=== PATIENT | female | born 1985 | race Asian ===

== ENCOUNTER → 2020-09-16 12:43 | Outpatient (CLI) | payer OTHER, SELFPAY ==
[2020-09-16 13:11] LABS: Add Manual Diff / Slide Review NO; Basophils Absolute Auto 100 /uL (0-100); Basophils Percent Auto 0.9 % (0-2); Eosinophils Absolute Auto 100 /uL (0-450); Eosinophils Percent Auto 1.9 % (2-4); Hematocrit 39.5 % (36-46); Hemoglobin 13.2 g/dL (12.0-16.0); Lymphocytes Absolute Auto 1900 /uL (1100-4500); Lymphocytes Percent Auto 35.1 % (25-40); Mean Corpuscular HGB Conc 33.5 % (30-36); Mean Corpuscular Hemoglobin 29.2 PG (26-34); Mean Corpuscular Volume 87.1 fL (80-100); Monocytes Absolute Auto 400 /uL (0-900); Monocytes Percent Auto 6.9 % (3-14); Neutrophils Absolute Auto 3000 /uL (1500-7000); Neutrophils Percent Auto 55.2 % (50-75); Platelet Count 288 X10^3/uL (150-400); Red Blood Cell Count 4.54 X10^6/uL (4.0-5.2); Red Cell Distribution Width 12.8 % (11.6-14.8); White Blood Cell Count 5.4 X10^3/uL (4.5-11.0)
[2020-09-16 13:27] LABS: Alanine Aminotransferase 24 IU/L (<35); Albumin 4.5 g/dL (3.5-5.0); Albumin Globulin Ratio 1.3 (1.0-2.8); Alkaline Phosphatase 44 U/L (38-126); Aspartate Aminotransferase 27 IU/L (14-36); BUN Creatinine Ratio 21.9 (6-22); Bilirubin Total 0.5 mg/dL (0.2-1.3); Blood Urea Nitrogen 14 mg/dL (7-17); Calcium 9.1 mg/dL (8.4-10.2); Carbon Dioxide 27 mmol/L (22-32); Chloride 105 mmol/L (98-107); Cholesterol 229 mg/dL (140-199); Estimated Glomerular Filt Rate > 60.0 mL/min (>60); Globulin 3.5 g/dL (1.7-4.1); Glucose 93 mg/dL (70-100); HDL Cholesterol 55 mg/dL (40-60); HEMOLYSIS < 15 (0-50); LDL Cholesterol Calculated 163 mg/dL (<100); Sodium 138 mmol/L (137-145); Triglycerides 53 mg/dL (35-150)
[2020-09-16 13:43] LABS: Free T4, Direct Thyroxine 1.43 ng/dL (0.78-2.19)
[2020-09-16 13:58] LABS: Thyroid Stimulating Hormone 1.06 uIU/mL (0.47-4.68)
== END ==
PROVIDERS: PCP Registered Nurse; Referring Provider Registered Nurse; Visit Provider Registered Nurse
DX: F41.8 Other specified anxiety disorders (principal); E78.5 Hyperlipidemia, unspecified; E05.90 Thyrotoxicosis, unspecified without thyrotoxic crisis or storm; B00.9 Herpesviral infection, unspecified
CPT/HCPCS: 36415; 80053; 80061; 84439; 84443; 85025

== ENCOUNTER → 2020-09-21 16:10 | Outpatient (CLI) | payer OTHER, SELFPAY ==
--- NOTE | 2020-09-21 16:11 | DI.US.S_ITS ---
PROCEDURE: US THYROID INDICATIONS: graves disease TECHNIQUE: Real-time scanning was performed of the thyroid gland, with image documentation. COMPARISON: None. FINDINGS: Right: Thyroid lobe measures 5.7 x 2.4 x 2.2 cm, and is homogeneous in echotexture. Left: Thyroid lobe measures 4.9 x 1.7 x 2.0 cm, and is homogenous in echotexture. Isthmus: 1.9 mm thick. Homogeneous, symmetric mildly increased vascularity throughout both lobes. IMPRESSION: 1. Mildly diffusely increased vascular flow throughout both thyroid lobes in a symmetric fashion, consistent with Graves disease. 2. No discrete nodules. 3. Normal size and morphology without significant fibrosis or cystic change. ACR TI-RADS definitions and recommendations: TI-RADS 1 (benign): 0 points. FNA not needed. TI-RADS 2 (not suspicious): 2 points. FNA not needed. TI-RADS 3 (mildly suspicious): 3 points. * FNA if 2.5 cm or larger, follow up if 1.5 cm or larger (at 1, 3, and 5 years). TI-RADS 4 (moderately suspicious): 4-6 points. * FNA if 1.5 cm or larger, follow up if 1 cm or larger (at 1, 2, 3, and 5 years). TI-RADS 5 (highly suspicious): 7 points or more. * FNA if 1 cm or larger, follow up if 0.5 cm or larger (every year for 5 years). Dictated by: Kenna Patrick M.D. on 09/22/2020 at 10:05 Approved by: Kenna Patrick M.D. on 09/22/2020 at 10:12
== END ==
PROVIDERS: PCP Registered Nurse; Referring Provider Registered Nurse; Visit Provider Registered Nurse
DX: E05.00 Thyrotoxicosis with diffuse goiter without thyrotoxic crisis or storm (principal)
CPT/HCPCS: 76536

== ENCOUNTER 2022-12-31 02:03 | Emergency (ER) | payer OTHER, SELFPAY ==
[2022-12-31 02:11] VITALS: BP 116/55; PULSE 71; RESP 16; TEMP 36.9; O2SAT 100; BMI 23.4
--- NOTE | 2022-12-31 02:20 | DI.RAD.S_ITS ---
PROCEDURE: XR ABDOMEN 1V INDICATIONS: LLQ abd pain hx of constipation TECHNIQUE: One view of the abdomen acquired. COMPARISON: None. FINDINGS: Surgical changes and devices: None. Bowel: Bowel gas pattern is normal. There is a large amount of stool in colon. Soft tissues: No suspicious abdominal calcifications. Visualized solid organ contours appear normal in size. Bones: No suspicious bony lesions. IMPRESSION: A large amount of stool in colon. Dictated by: Shae Cheung M.D. on 12/31/2022 at 8:26 Approved by: Shae Cheung M.D. on 12/31/2022 at 8:27
--- NOTE | 2022-12-31 02:20 | ED.GENADULT ---
HPI - General Adult General Chief complaint: Abdominal Pain Stated complaint: lower left abd pain, period pain Time Seen by Provider: 12/31/22 02:04 Source: patient Mode of arrival: Ambulatory Limitations: no limitations History of Present Illness HPI narrative: 37-year-old female who is here for evaluation of left-sided abdominal pain. States the symptoms started yesterday. Has not completely gone away but there periods of time on in his worse than others. She denies any urinary symptoms. She does state that she feels like she is constipated because after bowel movement she would yesterday she feels like she did not completely evacuate her bowels. Is having some nausea but no vomiting. No fevers. She is not on control. She is 1 week away from starting her menstrual cycle. No prior abdominal surgeries. Did try some ibuprofen prior to arrival without any improvement. Related Data Home Medications Medication Instructions Recorded Confirmed methimazole 5 mg tablet 5 mg PO DAILY 09/11/20 09/11/20 omeprazole 20 mg tablet,delayed 20 mg PO DAILY 12/31/22 12/31/22 release Previous Rx's Medication Instructions Recorded valacyclovir 500 mg tablet 500 mg PO DAILY 90 days #90 tabs 10/06/20 tramadol 50 mg tablet 50 mg PO Q8H PRN pain #7 tabs 12/31/22 Allergies Allergy/AdvReac Type Severity Reaction Status Date / Time No Known Drug Allergies Allergy Verified 12/31/22 02:16 Review of Systems Constitutional Constitutional: Reports system reviewed and no additional complaints, except as documented Gastrointestinal Gastrointestinal: Reports system reviewed and no additional complaints, except as documented Genitourinary Genitourinary: Reports system reviewed and no additional complaints, except as documented Integumentary/Breasts Skin/Breast: Reports system reviewed and no additional complaints, except as documented Patient History Family History (Updated 10/02/20 @ 21:36 by Christa Lazaro) Father History of heart disease Hypertension Hyperlipidemia Mother Hyperlipidemia Sister Heart palpitations Grandmother Leukemia Social History Smoking Status: Never smoker Smoking Status: Never smoker alcohol intake frequency: holidays/special occasions only Substance Use Type: does not use Exam Initial Vital Signs Initial Vital Signs: Vital Signs Temperature 98.4 F 12/31/22 02:11 Pulse Rate 71 12/31/22 02:11 Respiratory Rate 16 12/31/22 02:11 Blood Pressure 116/55 L 12/31/22 02:11 Pulse Oximetry 100 12/31/22 02:11 Oxygen Delivery Method Room Air 12/31/22 02:11 Const General: cooperative and No ill appearing GI Inspection: normal to inspection and non-distended Palpation: soft, No firm, No guarding and tender (Slightly tender left side abdomen) Other: No left adnexal tenderness Back/Spine/Pelvis Back: No CVA tenderness Skin General: no rashes or lesions noted Course Orders Ordered: ED Orders 12/31/22 02:17 UA Complete [Urinalysis and Microscopic] Stat 12/31/22 02:20 XR abdomen 1V Stat 12/31/22 02:23 Complete Blood Count AUTO DIFF Stat Comprehensive Metabolic Panel Stat Lipase Stat Discontinued Medications Ketorolac Tromethamine (Ketorolac 30 Mg/Ml Vial) 30 mg IV NOW ONE Stop: 12/31/22 02:27 Last Admin: 12/31/22 02:29 Dose: 30 mg Documented By: Ondansetron HCl (Ondansetron 4 Mg/2 Ml Inj) 4 mg IV NOW ONE Stop: 12/31/22 02:27 Last Admin: 12/31/22 02:29 Dose: 4 mg Documented By: Vital Signs Vital signs: Vital Signs - 8 hr 12/31/22 02:11 Temperature 98.4 F Pulse Rate 71 Respiratory Rate 16 Blood Pressure 116/55 L Pulse Oximetry 100 Oxygen Delivery Method Room Air Medical Decision Making Lab Data Lab results reviewed: Yes I reviewed the patient's lab results. 12/31/22 02:23 12/31/22 02:23 Labs: Lab Results 12/31/22 12/31/22 12/31/22 Range/Units 02:17 02:23 02:23 WBC 9.0 (4.5-11.0) X10^3/uL RBC 4.40 (4.0-5.2) X10^6/uL Hgb 13.0 (12.0-16.0) g/dL Hct 38.2 (36-46) % MCV 86.9 (80-100) fL MCH 29.6 (26-34) PG MCHC 34.0 (30-36) % RDW 13.1 (11.6-14.8) % Plt Count 314 (150-400) X10^3/uL Neut % (Auto) 66.9 (50-75) % Lymph % (Auto) 24.0 L (25-40) % [place] % (Auto) 6.2 (3-14) % Eos % (Auto) 2.2 (2-4) % Baso % (Auto) 0.7 (0-2) % Neut # (Auto) 6000 (3302-0976) /uL Lymph # (Auto) 2200 (3605-1364) /uL [place] # (Auto) 600 (0-900) /uL Eos # (Auto) 200 (0-450) /uL Baso # (Auto) 100 (0-100) /uL Sodium 135 L (137-145) mmol/L Potassium 3.9 (3.4-5.1) mmol/L Chloride 103 (98-107) mmol/L Carbon Dioxide 25 (22-32) mmol/L BUN 14 (7-17) mg/dL Creatinine 0.85 (0.52-1.04) mg/dL Estimated GFR > 60 (>60) mL/min BUN/Creatinine Ratio 16.5 (6-22) Glucose 98 (70-100) mg/dL Calcium 8.6 (8.4-10.2) mg/dL Total Bilirubin 0.4 (0.2-1.3) mg/dL AST 20 (14-36) IU/L ALT 19 (<35) IU/L Alkaline Phosphatase 45 (38-126) U/L Total Protein 7.6 (6.3-8.2) g/dL Albumin 3.9 (3.5-5.0) g/dL Globulin 3.7 (1.7-4.1) g/dL Albumin/Globulin Ratio 1.1 (1.0-2.8) Lipase 186 (23-300) U/L Urine Color Yellow Urine Appearance Clear Urine pH 5.5 (4.5-8.0) Ur Specific [place] >=1.030 H (1.000-1.035) Urine Protein Negative (Negative) Urine Glucose (UA) Negative (Negative) g/dL Urine Ketones Negative (NEGATIVE) Urine Occult Blood 1+ H (Negative) Urine Nitrate Negative (Negative) Urine Bilirubin Negative (NEGATIVE) Urine Urobilinogen 0.2 (0.2) E.U./dL Ur Leukocyte Esterase Negative (NEGATIVE) Urine RBC 0-1/hpf (0-5/HPF) Urine WBC None seen (0-5/HPF) Ur Squamous Epith Cells None seen (0-5/HPF) Amorphous Sediment 2+ Urine Bacteria None seen (None) Ur Culture Indicated? Cult not indicated Point of Care Testing Test Results Negative Urine Dip Bedside Urine Glucose Negative Bedside Urine Bilirubin - Negative Bedside Urine Ketone - Negative Urine Specific [place] 1.030 Bedside Urine Occult Blood + Bedside Urine pH 6.0 Bedside Urine Protein - Negative Bedside Urine Urobilinogen - Negative Bedside Urine Nitrite - Negative Bedside Urine Leukocytes - Negative Esterase Point of care testing: Point of Care Testing Test Results Negative Urine Dip Bedside Urine Glucose Negative Bedside Urine Bilirubin - Negative Bedside Urine Ketone - Negative Urine Specific [place] 1.030 Bedside Urine Occult Blood + Bedside Urine pH 6.0 Bedside Urine Protein - Negative Bedside Urine Urobilinogen - Negative Bedside Urine Nitrite - Negative Bedside Urine Leukocytes - Negative Esterase Imaging Data Abdominal x-ray: Radiologist's Impression: Constipation MDM Narrative Medical decision making narrative: Patient has a benign abdominal exam. Does have blood in her urine but no signs of infection. Her labs unremarkable. Her discomfort is certainly in the left side of the abdomen not in the left adnexa. I have low suspicion for ovarian torsion. test was negative. Given her presentation today I do feel that constipation is most likely the cause of her symptoms based on her x-ray in her presentation. Advised that she start taking laxatives. Feel that we can hold on further radiologic studies for now. She was informed of the blood in her urine and that she needs follow-up with a primary doctor for this. She was given return precautions. She expressed understanding and agreement. Discharge Plan Departure Patient Disposition: Home Clinical Impression: Abdominal pain, Constipation Instructions: DI for Abdominal Pain-Adult, DI for Constipation Activity Restrictions/Additional Instructions: I do recommend that you start taking MiraLax. You can purchase this [id number]. You can take it multiple times a day like we discussed. I also recommend that you talk with your primary doctor about the blood that was found to do urine today and also your abdominal pain especially if your symptoms continue to happened around the time of menstrual cycles. Return to the emergency department for new or worsening symptoms. Prescriptions: New tramadol 50 mg tablet 50 mg PO Q8H PRN (Reason: pain) Qty: 7 0RF No Action valacyclovir 500 mg tablet 500 mg PO DAILY 90 Days Qty: 90 1RF methimazole 5 mg tablet 5 mg PO DAILY omeprazole 20 mg Tablet,Delayed Release (Dr/Ec) 20 mg PO DAILY Referrals: ProviderJas [Primary Care Provider] - Stand Alone Forms: Patient Portal/API
[2022-12-31] MEDS: KETOROLAC 30 MG/ML VIAL IV (02:29)
[2022-12-31] MEDS: ONDANSETRON 4 MG/2 ML INJ IV (02:29)
[2022-12-31 02:40] LABS: Add Manual Diff / Slide Review NO; Basophils Absolute Auto 100 /uL (0-100); Basophils Percent Auto 0.7 % (0-2); Eosinophils Absolute Auto 200 /uL (0-450); Eosinophils Percent Auto 2.2 % (2-4); Hematocrit 38.2 % (36-46); Lymphocytes Absolute Auto 2200 /uL (1100-4500); Mean Corpuscular Hemoglobin 29.6 PG (26-34); Mean Corpuscular Volume 86.9 fL (80-100); Monocytes Absolute Auto 600 /uL (0-900); Monocytes Percent Auto 6.2 % (3-14); Neutrophils Absolute Auto 6000 /uL (1500-7000); Neutrophils Percent Auto 66.9 % (50-75); Platelet Count 314 X10^3/uL (150-400); Red Cell Distribution Width 13.1 % (11.6-14.8)
[2022-12-31 02:43] LABS: Alanine Aminotransferase 19 IU/L (<35); Albumin 3.9 g/dL (3.5-5.0); Albumin Globulin Ratio 1.1 (1.0-2.8); Alkaline Phosphatase 45 U/L (38-126); Aspartate Aminotransferase 20 IU/L (14-36); BUN Creatinine Ratio 16.5 (6-22); Bilirubin Total 0.4 mg/dL (0.2-1.3); Blood Urea Nitrogen 14 mg/dL (7-17); Calcium 8.6 mg/dL (8.4-10.2); Carbon Dioxide 25 mmol/L (22-32); Chloride 103 mmol/L (98-107); Estimated Glomerular Filt Rate > 60 mL/min (>60); Globulin 3.7 g/dL (1.7-4.1); Glucose 98 mg/dL (70-100); HEMOLYSIS < 15 (0-50); Lipase 186 U/L (23-300); Potassium 3.9 mmol/L (3.4-5.1); Sodium 135 mmol/L (137-145); Total Protein 7.6 g/dL (6.3-8.2)
[2022-12-31 02:56] LABS: Appearance Urine UA CLEAR; Bilirubin Urine UA NEGATIVE (NEGATIVE); Color Urine UA YELLOW; Glucose Urine UA NEGATIVE (Negative); Ketones Urine UA NEGATIVE (NEGATIVE); Leukocyte Esterase Urine UA NEGATIVE (NEGATIVE); Nitrite Urine UA NEGATIVE (Negative); Occult Blood Urine UA 1+ (Negative); Protein Urine UA NEGATIVE (Negative); Specific Gravity Urine UA >=1.030 (1.000-1.035); Urobilinogen Urine UA 0.2 E.U./dL (0.2)
[2022-12-31 02:57] LABS: pH Urine UA 5.5 (4.5-8.0)
[2022-12-31 03:05] LABS: Amorphous Sediment Urine 2+; Bacteria Urine None Seen; Culture Indicated Urine Cult Not Indicated; RBC Urine 0-1/HPF (0-5/HPF); Squamous Epithelial Cell Urine None Seen (0-5/HPF); WBC Urine None Seen (0-5/HPF)
[2022-12-31 03:18] VITALS: BP 106/72; PULSE 61; RESP 16; O2SAT 98
== END 2022-12-31 03:19 | disposition home or self-care (01) ==
PROVIDERS: Emergency Provider Emergency Medicine
DX: R10.32 Left lower quadrant pain (principal); K59.00 Constipation, unspecified; R11.0 Nausea
CPT/HCPCS: 36415; 74018; 80053; 81001; 81003; 81025; 83690; 85025; 96374; 96375; 99284; J1885; J2405